=== PATIENT | female | born 2000 | race Hispanic/Latino ===

== ENCOUNTER 2025-01-01 10:38 | Emergency (ER) | payer MEDICAID ==
[~2025-01-01] VITALS: Ht 167.6 cm; Wt 79.4 kg
[~2025-01-01 10:38] MED LIST: ACET-66 PO; CEPH500C2 PO; CYCL5TAB3 PO; METH4TAB3 PO; NAPR-1194 PO
--- NOTE | 2025-01-01 10:57 | ERN ---
ED Note History of Present Illness Stated Complaint: ABDOMINAL PAIN Chief Complaint: Abdominal Pain Time Seen by MD: 10:40 Dictation: Patient is a 24-year-old female coming in today states she just found out this morning with a home test that she is and has been having lower pelvic pain. no fever no chills no nausea vomiting. LMP is unknown. no care. Denies vaginal bleeding at this time. Allergies: Coded Allergies: No Known Drug Allergies (Unverified Allergy, Unknown, 09/13/23) Home Meds Active Scripts Cephalexin (Cephalexin) 500 Mg Capsule, 500 MG PO TID for 10 Days, #30 CAP Prov:JAMIE PEREZ 09/13/23 Methylprednisolone (Medrol) 4 Mg Tab.ds.pk, 4 MG PO AD for 5 Days, #1 PACK Prov:JAMIE PEREZ 09/13/23 Cyclobenzaprine HCl (Cyclobenzaprine HCl) 5 Mg Tablet, 5 MG PO DAILYDINNER for 7 Days, #7 TAB Prov:JAMIE PEREZ 09/13/23 Naproxen (Naproxen) 500 Mg Tablet, 500 MG PO BID for 5 Days, #10 TAB Prov:JAMIE PEREZ 09/13/23 Acetaminophen (Acetaminophen) 500 Mg Tablet, 500 MG PO Q4PRN for 5 Days, #15 TAB Prov:[id number] Jose A BLANC 09/13/23 Past Medical History Past Medical History: No Pertinent History Surgical History: None : 1 Para: 0 Aborts: 0 RN Note Reviewed/Agreed w/PFSH: Yes Review of System Dictation CONSTITUTIONAL: Negative except for HPI HEAD/FACE: Negative except for HPI EENT: Negative except for HPI RESPIRATORY: Negative except for HPI GASTROINTESTINAL/ABDOMINAL: Negative except for HPI lower pelvic pain GENITOURINARY: Negative except for HPI MUSCULOSKELETAL: Negative except for HPI INTEGUMENTARY: Negative except for HPI NEUROLOGICAL/PSYCH: Negative except for HPI HEMATOLOGIC/LYMPHATIC: Negative except for HPI All Systems Negative, Except as noted above. 13 point review of systems assessed and all negative except for above. Initial Vital Sign VS Vital Signs Date Time Temp Pulse Resp B/P (MAP) Pulse Ox O2 Delivery O2 Flow Rate FiO2 01/01/25 10:53 98.2 96 17 111/82 99 0 01/01/25 11:20 Room Air* 21 Physical Exam Dictation Vital Signs reviewed General Appearance: Alert, oriented x 3, mild acute distress, well developed, nourished. Head and Face: non-traumatic. Eyes: PERRL, pink conjunctivas, eyelid no trauma, anterior chamber with arcus senilis. Ears: Pinnas intact and no signs of trauma or erythema ear canals clear and no discharge TM no erythema Nose: No discharge, no bleeding. Oropharynx: Mouth normal, tongue pink, pharynx clear,no erythema, tonsils no exudates, no abscesses noted, mucous membrane moist Neck: Supple, non-tender, no thyromegaly, no masses, no JVD, no bruits Breast:Deferred Chest:No tenderness, no crepitus, no paradoxical movement, no retractions Lungs:Clear, well-ventilated, symmetric, no rales, no wheezing, no rhonchi, no stridor, good breath sounds bilaterally Heart: Regular rate, regular rhythm, no murmur, no gallops Vascular: no peripheral edema, Abdomen: Soft, positive bowel sounds, nondistended, no guarding, nontender, no rebound, no masses no hepatomegaly, no splenomegaly, no Chatterjee's sign, no hernias. Rectal: Deferred Genital: Deferred Neurological: Normal speech, motor function intact, sensory function intact Musculoskeletal: Neck nontender, full range of motion, back nontender, full range of motion, Extremities: nontender, full range of motion Skin: Color pink, dry, no turgor, no rash, no lacerations, no abrasions, no contusions. Lymphatic: Deferred Results (Laboratory/Radiology) Laboratory/Radiology Laboratory Tests Test 01/01/25 11:03 01/01/25 11:52 White Blood Count 7.3 K/uL (4.8-10.8) Red Blood Count 5.06 MIL/uL (4.00-5.50) Hemoglobin 14.9 g/dL (12.0-16.0) Hematocrit 42.8 % (36-48) Mean Corpuscular Volume 84.6 fL (79-99) Mean Corpuscular Hemoglobin 29.4 pg (27.0-33.0) Mean Corpuscular Hemoglobin Concent 34.8 g/dL (32.0-36.0) Red Cell Distribution Width 12.4 % (11.0-15.5) Platelet Count 264 K/uL (130-400) Mean Platelet Volume 11.3 fL (7.5-10.5) H Immature Granulocyte % (Auto) 0.1 % (0-1) Neutrophils (%) (Auto) 61.5 % (40.0-77.0) Lymphocytes (%) (Auto) 32.3 % (21.0-51.0) Monocytes (%) (Auto) 5.3 % (3.0-13.0) Eosinophils (%) (Auto) 0.5 % (0.0-8.0) Basophils (%) (Auto) 0.3 % (0.0-5.0) Neutrophils # (Auto) 4.5 K/uL (1.8-7.7) Lymphocytes # (Auto) 2.4 K/uL (1.0-4.8) Monocytes # (Auto) 0.4 K/uL (0.1-1.0) Eosinophils # (Auto) 0.04 K/uL (0.00-0.70) Basophils # (Auto) 0.02 K/uL (0.00-0.20) Absolute Immature Granulocyte (auto 0.01 K/uL (0-1) Nucleated Red Blood Cells 0.0 % (0.0-0.19) Sodium Level 137 mmol/L (136-145) Potassium Level 3.7 mmol/L (3.5-5.1) Chloride Level 101 mmol/L (101-111) Carbon Dioxide Level 28 mmol/L (21-32) Blood Urea Nitrogen 8 mg/dL (7-18) Creatinine 0.6 mg/dL (0.5-1.0) Glomerular Filtration Rate Calc 128 mL/min (>90) Random Glucose 121 mg/dL (70-105) H Total Calcium 9.3 mg/dL (8.5-10.1) Human Chorionic Gonadotropin, Quant 76887 mIU/mL (0-5) H Urine Color YELLOW (YELLOW) Urine Appearance CLEAR (CLEAR) Urine pH 8.0 (5.0-8.0) Urine Specific [place] 1.027 (1.001-1.031) Urine Protein 20 mg/dL (NEGATIVE) H Urine Glucose (UA) NEGATIVE mg/dL (NEGATIVE) Urine Ketones NEGATIVE mg/dL (NEGATIVE) Urine Occult Blood NEGATIVE (NEGATIVE) Urine Nitrate NEGATIVE (NEGATIVE) Urine Bilirubin NEGATIVE mg/dL (NEGATIVE) Urine Urobilinogen 3 mg/dL (0.2-1.0) H Urine Leukocyte Esterase NEGATIVE Sally/uL ULTRASOUND OB COMP <14 WEEKS ULTRASOUND OB TRANSVAGINAL INDICATION: Dates. TECHNIQUE: Obstetrical transabdominal and transvaginal ultrasounds were performed. Transvaginal ultrasounds were performed for the purpose of better delineating pelvic anatomy. COMPARISON: None FINDINGS: Transvaginal imaging was performed to better delineate pelvic anatomy. <<<Uterus measures 7.7>> cm craniocaudal x 5.6 cm anteroposterior x 6.0 cm transverse>]. The cervical os is closed. <<<Cervical length is not provided <<<Single live intrauterine gestational corresponds to sonographic gestational age of 4 weeks and 4 days based on gestational age. The pole is not identified. heart rate not visualized due to early gestational age. Both ovaries are normal size with normal echotexture.>]. Bilateral symmetric doppler vascular flow and normal spectral waveforms are demonstrated with both ovaries. The right ovary measures 2.3 x 1.8 x 2.8 cm. The left ovary measures 3.4 x 1.8 x 3 cm. The adnexa appear unremarkable. No pelvic free fluid demonstrated. Survey of placental anatomic structure could not be performed because of gestational age. IMPRESSIONS: 1. Single live intrauterine gestation corresponding to sonographic gestational age of 4 weeks and 4 days based on gestational sac. The pole and cardiac activity is not seen due to very early gestational age. I would recommend a follow-up sonogram and correlation with beta hCG. 2. There is a very small subchorionic bleed 3. ROGELIO = 09/10/2025.. Labs Reviewed?: Yes ED Course ED Course Orders Procedure Category Date Status Time Cbc With Differential LAB 01/01/25 Complete 10:53 Hcg,Quantitative LAB 01/01/25 Complete 10:53 Type And Screen BBK 01/01/25 Complete 10:53 Basic Metabolic Panel LAB 01/01/25 Complete 10:53 Urinalysis Profile LAB 01/01/25 In Process 10:53 Us Ob <14 Weeks US 01/01/25 Resulted 10:53 Acetaminophen 500mg PHA 01/01/25 Complete Tab (Tylenol 500mg T 11:00 Current Medications Medications (Trade) Dose Ordered Sig/Marci Route PRN Reason Start Time Stop Time Status Last Admin Dose Admin Acetaminophen (TYLenol 500MG TAB) 1,000 mg ONCE ONCE PO 01/01/25 11:00 01/01/25 11:01 DC 01/01/25 11:27 Vital Signs Date Time Temp Pulse Resp B/P (MAP) Pulse Ox O2 Delivery O2 Flow Rate FiO2 01/01/25 11:20 98.1 80 17 103/62 100 Room Air* 0 21 01/01/25 10:53 98.2 96 17 111/82 99 0 1230/WORKUP ESSENTIALLY NEGATIVE X-RAY PATIENT HAS A APPROXIMATELY FOUR WEEKS FOUR DAYS SAC SEEN ONLY WITH NO HEART TONES ARE MOVEMENT PATIENT AWARE THIS IS TOO EARLY FOR IMAGING AND WE WILL REFER TO HER SECONDS GRADER DOCTOR. Medical Decision Making MDM MDM: DIFFERENTIAL DIAGNOSIS: ECTOPIC /PAIN OF /UTI/ELECTROLYTE IMBALANCE/DEHYDRATION/ABDOMINAL CRAMPING/ RATIONALE: TESTS CONSIDERED AND ORDERED SECONDARY TO SHARED DECISION MAKING INCLUDE: RADIOLOGY/LABS PREVIOUS OUTSIDE RECORDS REVIEWED: OLD ER VISITS. RISK OF COMPLICATION AND/OR MORBIDITY OR MORTALITY OF PATIENT MANAGEMENT: NONE MEDICATIONS-PER MEDICATION RECONCILIATION NEED FOR HOSPITALIZATION: PATIENT DOES NOT MEET CRITERIA FOR HOSPITALIZATION. NONE NEED FOR EMERGENCY MAJOR/MINOR SURGERY: NO THERE ARE NO SOCIAL CONCERNS WITH THIS PATIENT. PRESCRIPTION DRUG MANAGEMENT NONE PRESCRIPTIONS WILL INCLUDE SYMPTOMATIC CARE PATIENT'S PRIOR EXTERNAL MEDICAL RECORDS FROM OTHER ER VISITS WERE REVIEWED BY ME INDICATED. PRIOR TESTING AND RESULTS FROM PREVIOUS VISITS WERE REVIEWED. PRIOR TESTS WERE TAKEN INTO ACCOUNT WITH MEDICAL DECISION MAKING AND RESOURCE UTILIZATION, INDEPENDENT HISTORIAN/HISTORIANS WERE USED TO OBTAIN COMPLETE MEDICAL HISTORY. I INDEPENDENTLY INTERPRETED THE TEST THAT WERE PERFORMED, RESULTS WERE REVIEWED BY ME AND CONSIDERED FINDINGS ON RADIOLOGY IF ORDERED. MEDICAL MANAGEMENT AND EXAMINATION INTERPRETATION DISCUSSIONS WERE HAD BY ME WITH OTHER QUALIFIED HEALTHCARE PROFESSIONALS INDICATED FOR THE PATIENT'S CARE. DX & DISP Disposition: Discharge Departure Impression: Primary Impression: Abdominal pain in Condition: Stable Additional Instructions: FOLLOW-UP WITH PRIMARY CARE PROVIDER IN 1 TO 2 DAYS. TAKE MEDICATIONS DIRECTED HERE IN THE EMERGENCY ROOM. OKAY TO CONTINUE HOME MEDICATIONS UNLESS OTHERWISE DISCUSSED DURING YOUR VISIT IN THE EMERGENCY ROOM TODAY. RETURN TO [facility] EMERGENCY ROOM IF SYMPTOMS WORSEN OR IF THERE IS NO IMPROVEMENT. CALL 911 IF YOU NEED IMMEDIATE ASSISTANCE. TAKE TYLENOL [id number] NEEDED AND IF NO CONTRAINDICATIONS ARE PRESENT. INCREASE ORAL HYDRATION. A WOUND CULTURE OR URINE CULTURE WAS ORDERED HERE IN THE EMERGENCY ROOM DEPARTMENT PLEASE FOLLOW-UP WITH PRIMARY CARE PROVIDER AND ADVISE THEM TO GET REPEAT PORTS FROM OUR FACILITY. IF YOU HAD ANY PHILL WRAP/SPLINTS THAT WERE APPLIED HERE, PLEASE DO NOT REMOVE THEM UNTIL YOU SEE YOUR PRIMARY CARE OR SPECIALTY. TYLENOL [id number] ONLY FOR PAIN. BEGIN VITAMINS/[id number] TODAY AND TAKE DAILY WITH FOOD. NO ALCOHOL, NO TOBACCO, NO [id number] MEDICATIONS EXCEPT TYLENOL UNTIL CLEARED BY YOUR SECONDS GRADER DOCTOR. Referrals: NONE (PCP) Time of Disposition: 12:34 I have reviewed the case, and I agree with, Diagnosis and Plan BEVERLEY LEMOS NP Jan 01, 2025 10:57
[2025-01-01 11:18] LABS: IMMATURE GRANULOCYTE ABSOLUTE 0.01 K/uL (0-1); NUCLEATED RED BLOOD CELLS 0.0 % (0.0-0.19); PLATELET COUNT (AUTO) 264 K/uL (130-400); RED BLOOD CELL COUNT(AUTO) 5.06 MIL/uL (4.00-5.50); RED CELL DISTRIBUTION WIDTH 12.4 % (11.0-15.5); WHITE BLOOD COUNT (AUTO) 7.3 K/uL (4.8-10.8)
[2025-01-01 11:23] LABS: CREATININE 0.6 mg/dL (0.5-1.0); GLOMERULAR FILTR. RATE CALC 128.0 mL/min (>90); GLUCOSE,RANDOM 121.0 mg/dL (70-105); SODIUM SERUM 137.0 mmol/L (136-145); UREA NITROGEN, BLOOD 8.0 mg/dL (7-18)
[2025-01-01 11:50] LABS: HCG,QUANTITATIVE 23836.0 mIU/mL (0-5)
--- NOTE | 2025-01-01 12:00 | HMCIMG ---
ULTRASOUND OB COMP <14 WEEKS ULTRASOUND OB TRANSVAGINAL INDICATION: Dates. TECHNIQUE: Obstetrical transabdominal and transvaginal ultrasounds were performed. Transvaginal ultrasounds were performed for the purpose of better delineating pelvic anatomy. COMPARISON: None FINDINGS: Transvaginal imaging was performed to better delineate pelvic anatomy. <<<Uterus measures 7.7>> cm craniocaudal x 5.6 cm anteroposterior x 6.0 cm transverse>]. The cervical os is closed. <<<Cervical length is not provided <<<Single live intrauterine gestational corresponds to sonographic gestational age of 4 weeks and 4 days based on gestational age. The pole is not identified. heart rate not visualized due to early gestational age. Both ovaries are normal size with normal echotexture.>]. Bilateral symmetric doppler vascular flow and normal spectral waveforms are demonstrated with both ovaries. The right ovary measures 2.3 x 1.8 x 2.8 cm. The left ovary measures 3.4 x 1.8 x 3 cm. The adnexa appear unremarkable. No pelvic free fluid demonstrated. Survey of placental anatomic structure could not be performed because of gestational age. IMPRESSIONS: 1. Single live intrauterine gestation corresponding to sonographic gestational age of 4 weeks and 4 days based on gestational sac. The pole and cardiac activity is not seen due to very early gestational age. I would recommend a follow-up sonogram and correlation with beta hCG. 2. There is a very small subchorionic bleed 3. ROGELIO = 09/10/2025..
[2025-01-01 12:24] LABS: APPEARANCE,URINE CLEAR (CLEAR); GLUCOSE, URINE (UA) NEGATIVE (NEGATIVE); LEUKOCYTE ESTERASE ,URINE NEGATIVE Leu/uL (NEGATIVE); NITRATE,URINE NEGATIVE (NEGATIVE); OCCULT BLOOD,URINE NEGATIVE (NEGATIVE)
[2025-01-01 12:30] LABS: ADD UA MICROSCOPIC YES
[2025-01-01 12:43] LABS: SQUAMOUS EPITHELIAL CELL,UR MANY /HPF (0-2)
[2025-01-01 13:00] VITALS: BP 118/68; PULSE 81; RESP 17; TEMP 98.1; O2SAT 99
--- NOTE | 2025-01-01 13:04 | NUR ---
DC PATIENT WAS DC'D BY BEVERLEY LEMOS NP TODAY, I EXPLAINED TO PATIENT INFO BASED ON DIAGNOSIS, I ANSWERED ANY FURTHER QUESTIONS FROM PATIENT, PATIENT AMBULATED OUT OF ED, NO COMPLICATIONS
== END 2025-01-01 13:02 | disposition home or self-care (01) ==
LOC: EDH 10:38
DX: O26.891 Other specified pregnancy related conditions, first trimester (principal); R10.2 Pelvic and perineal pain; Z3A.01 Less than 8 weeks gestation of pregnancy; Z79.899 Other long term (current) drug therapy
CPT/HCPCS: 36415; 76801; 80048; 81001; 84702; 85025; 86850; 86900; 86901; 99284